=== PATIENT | female | born 1990 | race Two or more races ===

== ENCOUNTER 2022-09-05 13:42 | Inpatient (IN) | payer SELFPAY ==
[~2022-09-05] VITALS: Ht 152.4 cm; Wt 58.1 kg
--- NOTE | 2022-09-05 14:30 | NUR ---
BIB RA 837,NAUSEA/VOMITING AFTER EATING POT STICKERS FOR LUNCH. PLACED IN BED, AAOX4, NAUSEATED.
--- NOTE | 2022-09-05 14:35 | NUR ---
FIELD CANE SCALER HELPER AT BEDSIDE
--- NOTE | 2022-09-05 14:55 | NUR ---
AT BEDSIDE FOR EVAL.
[2022-09-05 14:57] LABS: BASOPHILS # (AUTO) 0.1 K/uL (0.0-0.2); BASOPHILS % (AUTO) 0.2 % (0.0-2.0); EOSINOPHILS % (AUTO) 0.2 % (0.0-6.0); HEMATOCRIT 45 % (33-45); HEMOGLOBIN 14.3 g/dL (11.5-14.8); LYMPHOCYTES # (AUTO) 2.8 K/uL (0.8-4.8); MEAN CORPUSCULAR HGB CONC 32 g/dl (31.0-36.0); MEAN CORPUSCULAR VOLUME 83 fL (82-100); MONOCYTES # (AUTO) 1.3 K/uL (0.1-1.30); MONOCYTES % (AUTO) 4.9 % (2.0-12.0); NEUTROPHILS # (AUTO) 21.5 K/uL (1.8-8.9); NEUTROPHILS % (AUTO) 83.7 % (43.0-81.0); PLATELET COUNT (AUTO) 310 K/uL (150-450); RED BLOOD CELL COUNT(AUTO) 5.46 MIL/uL (4.0-5.2); WHITE BLOOD COUNT (AUTO) 25.8 K/uL (4.3-11.0)
[2022-09-05] MEDS ORDERED: ONDANSETRON HCL/PF - ER 4 MG/2 ML VIAL IV ONE (15:00)
[2022-09-05] MEDS ORDERED: IV NS 0.9% 1,000 ML IV ONE (15:00)
[2022-09-05] MEDS ORDERED: MECLIZINE HCL 25 MG TABLET PO ONE (15:00)
[2022-09-05] MEDS ORDERED: ONDANSETRON HCL/PF 4 MG/2 ML VIAL ONE (15:02)
[2022-09-05] MEDS ORDERED: MECLIZINE HCL 25 MG TABLET ONE (15:03)
[2022-09-05 15:13] LABS: ALBUMIN 4.1 g/dL (3.4-5.0); BILIRUBIN,DIRECT 0.1 mg/dL (0.0-0.2); BILIRUBIN,TOTAL 0.4 mg/dL (0.2-1.0); CALCIUM, SERUM 9.3 mg/dL (8.5-10.1); CREATININE 1.1 mg/dL (0.6-1.3); POTASSIUM 3.6 mmol/L (3.5-5.1); TOTAL PROTEIN, SERUM 8.2 g/dL (6.4-8.2)
[2022-09-05 16:11] LABS: ACETAMINOPHEN < 10 ug/ml (10-30); ALCOHOL, BLOOD < 3 mg/dL (0-0)
--- NOTE | 2022-09-05 16:27 | NUR ---
SWAB FOR COVID19 SENT TO LAB
[2022-09-05] MEDS ORDERED: VANCOMYCIN 1 GM in IV D5W 250 ML IV ONE (16:30)
[2022-09-05] MEDS ORDERED: CEFEPIME 1 GM in IV D5W 50 ML IV ONE (16:30)
[2022-09-05 16:51] LABS: BAND % (MANUAL) 1 % (0.0-5.0); LYMPHOCYTES % (MANUAL) 9 % (16-48); MONOCYTES % (MANUAL) 5 % (0-11.0); NEUTROPHILS % (MANUAL) 85 (42-76)
[2022-09-05] MEDS ORDERED: IV NS 0.9% 1,000 ML BAG IV ONE (17:00)
[2022-09-05 18:34] LABS: BILIRUBIN,URINE NEGATIVE (NEGATIVE); COLOR,URINE YELLOW (YELLOW); LEUKOCYTE ESTERASE ,URINE NEGATIVE (NEGATIVE); NITRITE, URINE NEGATIVE (NEGATIVE); PROTEIN,URINE NEGATIVE (NEGATIVE); UGLUCOSE 1+ mg/dL (NEGATIVE); UROBILINOGEN,URINE 0.2 EU/dL (0.2)
--- NOTE | 2022-09-05 18:47 | NUR ---
PATIENT TAKEN TO CT VIA LUCY
[2022-09-05 18:53] LABS: BACTERIA,URINE Moderate /HPF (None Seen); RBC,URINE 0-2 /HPF (0-2); SQUAMOUS EPITHELIAL CELL,UR Few /HPF (None Seen); WBC,URINE 0-2 /HPF (0-3)
[2022-09-05 18:54] LABS: URINE AMORPHOUS URATE Moderate /HPF (None Seen)
[2022-09-05] MEDS ORDERED: HYDROCODONE/APAP 5/325MG TABLET PO PRN (19:30)
[2022-09-05] MEDS ORDERED: ONDANSETRON HCL/PF 4 MG/2 ML VIAL IVP PRN (19:30)
[2022-09-05] MEDS ORDERED: Z GUARD REMEDY 4 OZ OINT TP PRN (19:30)
[2022-09-05] MEDS ORDERED: ACETAMINOPHEN 325 MG TABLET PO PRN (19:30)
[2022-09-05] MEDS ORDERED: MAGNESIUM HYDROXIDE 30 ML UDC PO PRN (19:30)
--- NOTE | 2022-09-05 20:40 | NUR ---
pt is ok to give information to Nacho Lovell.
[2022-09-05] MEDS ORDERED: ACYCLOVIR IV 500 MG in IV D5W 100 ML IV ONE (22:30)
--- NOTE | 2022-09-05 22:30 | NUR ---
LUMBAR TAP DONE BY CSF SAMPLE SENT TO LAB
[2022-09-05] MEDS ORDERED: ACYCLOVIR IV 500 MG VIAL IV ONE (22:42)
[2022-09-05] MEDS ORDERED: DOSE PER PHARMACY (MD SPECIFY MEDICATION) 1 EA XX PRN (23:00)
--- NOTE | 2022-09-05 23:03 | NUR ---
REPORT GIVEN TO ANNA RN ROOM 317 FOR BERTA
[2022-09-05 23:08] LABS: CSF GLUCOSE 76 mg/dL (40-70); CSF PROTEIN 39.52 mg/dL (15-45)
[2022-09-05 23:15] VITALS: BP 137/73
--- NOTE | 2022-09-05 23:24 | NUR ---
PATIENT TRANSFERED AND ADMITTED PER [facility] PROTOC[facility]
[2022-09-05] MEDS ORDERED: METOCLOPRAMIDE HCL IV ONE (23:30)
[2022-09-05] MEDS ORDERED: DIPHENHYDRAMINE HCL IV ONE (23:30)
[2022-09-05] MEDS ORDERED: NS 0.9% IV ONE (23:30)
--- NOTE | 2022-09-05 23:45 | NUR ---
LEAD SCIENTISTMASS SPECTROMETRY SPECIALIST NOTES - RECEIVED PATIENT FROM ED AT 2314 VIA GURNEY UNDER THE CARE OF LILLY POE NP WITH DX OF SIRS. PATIENT IS A/O X4, UKRANIAN SPEAKING BUT CAN UNDERSTAND AND SPEAKS SOME BELARUSIAN. PER PATIENT, SHE IS A [place] AND [place]RIVED IN THE [place] LAST NOVEMBER. BREATHING IS EVEN AND NON-LABORED ON ROOM AIR. NOT IN APPARENT DISTRESS. DENIES PAIN, N/V, DIZZINESS AT THIS TIME. HAS LEFT ANTECUBITAL IV ACCESS #20G WITH ZOVIRAX IV RUNNING AT 100 ML/HR. NO S/S OF INFILTRATION NOTED. VITAL SIGNS TAKEN AND PHYSICAL ASSESSMENT DONE, NO SKIN ISSUES NOTED. ALL BELONGINGS ACCOUNTED FOR. ORIENTED PATIENT TO UNIT AND STAFF. PATIENT IS AMBULATORY AND INDEPENDENT WITH ADLS. SAFETY PRECAUTIONS IN PLACE: BED LOCKED AND IN LOW POSITION, SIDE RAILS UP X2, CALL LIGHT WITHIN REACH, ON AIRBORNE AND CONTACT ISOLATION. WILL CONTINUE PLAN OF CARE.
[2022-09-06] MEDS ORDERED: METOCLOPRAMIDE HCL 10 MG/2 ML VIAL ONE (00:27)
[2022-09-06] MEDS ORDERED: diphenhydrAMINE HCL 50 MG/ML VIAL ONE (00:28)
[2022-09-06] MEDS ORDERED: CEFTRIAXONE 1 G VIAL ONE ×2 (00:29→00:30)
[2022-09-06] MEDS: IV NS 0.9% 1,000 ML IV PRN ×2 (00:30→18:35)
[2022-09-06 04:00] VITALS: BP 105/59
[2022-09-06] MEDS ORDERED: VANCOMYCIN 1 GM in IV D5W 250ml IV SCH (06:00)
[2022-09-06 07:00] VITALS: BP 116/60
[2022-09-06 07:05] LABS: BASOPHILS % (AUTO) 0.2 % (0.0-2.0); EOSINOPHILS % (AUTO) 1.2 % (0.0-6.0); HEMATOCRIT 36 % (33-45); HEMOGLOBIN 11.7 g/dL (11.5-14.8); LYMPHOCYTES # (AUTO) 2.4 K/uL (0.8-4.8); LYMPHOCYTES % (AUTO) 16.1 % (20.0-44.0); MEAN CORPUSCULAR HGB CONC 32 g/dl (31.0-36.0); MEAN CORPUSCULAR VOLUME 83 fL (82-100); MONOCYTES # (AUTO) 1.2 K/uL (0.1-1.30); MONOCYTES % (AUTO) 8.3 % (2.0-12.0); NEUTROPHILS # (AUTO) 11.1 K/uL (1.8-8.9); NEUTROPHILS % (AUTO) 74.2 % (43.0-81.0); PLATELET COUNT (AUTO) 222 K/uL (150-450); RED BLOOD CELL COUNT(AUTO) 4.39 MIL/uL (4.0-5.2)
--- NOTE | 2022-09-06 07:19 | NUR ---
COAGULATING DRYING SUPERVISOR CLOSING NOTES - PATIENT SLEEPING, EASY TO AROUSE. ABLE TO VERBALIZE SOME NEEDS. NO CARDIAC OR RESPIRATORY DISTRESS THROUGHOUT THE NIGHT. NO C/O PAIN. AFEBRILE. ON TELE MONITOR READING SINUS RHYTHM AT 78 BPM. HAS LEFT ANTECUBITAL IV ACCESS #20G WITH IVPB VANCO RUNNING AT 250 ML/HR. INTACT, PATENT AND FLUSHING. KEPT ON AIRBORNE AND CONTACT ISOLATION. HAS BRP. ALL DUE MEDS GIVEN AND NEEDS ATTENDED. SAFETY PRECAUTIONS MAINTAINED. WILL ENDORSE TO NEXT SHIFT FOR BERTA.
[2022-09-06 07:24] LABS: CALCIUM, SERUM 7.8 mg/dL (8.5-10.1); CREATININE 0.8 mg/dL (0.6-1.3); MAGNESIUM 2.2 mg/dL (1.8-2.4); PHOSPHORUS 3.6 mg/dL (2.5-4.9); POTASSIUM 3.5 mmol/L (3.5-5.1)
--- NOTE | 2022-09-06 07:30 | NUR ---
PROFESSIONAL FIGHTER OPENING NOTE PATIENT RECEIVED AWAKE A/O X4. ON ROOM AIR, BREATHING EVEN AND UNLABORED, WITH NO S/S OF SOB. CLEAR LUNG SOUNDS. O2 96%. PATIENT HAS HYPOACTIVE BOWEL SOUNDS, NO ROUNDED TENDERNESS, OR PINPOINT PAIN . NO COMPLAINTS OF PAIN. NO BILATERAL EDEMA PRESENT AND CAPILLARIES REFILL < 3, WARM TO TOUCH. IV ACCESS ON THE L AC G#20, INTACT AND PATENT, RUNNING NS @75ML/HR. FALL AND SAFETY PRECAUTION ARE IN PLACE: BED AT THE LOWEST POSITION, LOCKED, SRx2,CALL LIGHT WITHIN REACH.
[2022-09-06 08:21] LABS: THYROID STIMULATING HORMONE 3.394 uIU/mL (0.358-3.74)
[2022-09-06] MEDS: PANTOPRAZOLE 40 MG TABLET.DR PO SCH (08:31)
[2022-09-06] MEDS: ACYCLOVIR IV 500 MG in IV D5W 100 ML IV SCH ×2 (09:48→13:23)
[2022-09-06 12:00] VITALS: BP 118/63
[2022-09-06] MEDS ORDERED: CEFTRIAXONE 2 G in IV D5W 100 ML IV SCH ×4 (12:00→17:30)
[2022-09-06 16:00] VITALS: BP 132/75
[2022-09-06] MEDS ORDERED: VANCOMYCIN 0.75 GM in IV D5W 250 ML IV SCH (18:00)
--- NOTE | 2022-09-06 18:34 | NUR ---
RAILWAY SIGNAL OPERATOR CLOSING NOTE PATIENT AWAKE SITTING IN BED, A/O X4. ON ROOM AIR, BREATHING EVEN AND UNLABORED, WITH NO S/S OF SOB. NO COMPLAINTS OF PAIN. CONTINENT:BRP. SCHEDULED MEDICATIONS ADMINISTERED. IV ACCESS ON LEFT HAND G#22, INTACT AND PATENT, RUNNING NS @75ML/HR. FALL AND SAFETY PRECAUTION ARE IN PLACE: BED AT THE LOWEST POSITION, LOCKED, SRx2,CALL LIGHT WITHIN REACH. Addendum: 09/06/22 at 1844 by YUN DOMINGO RN [facility] NOTE ABOVE
--- NOTE | 2022-09-06 19:30 | NUR ---
FORESTRY FIRE AID OPENING NOTES - RECEIVED PATIENT RESTING IN BED. A/O X4. BREATHING EVEN AND NON-LABORED ON ROOM AIR. NOT IN APPARENT DISTRESS. DENIES ANY PAIN, N/V AT THIS TIME. ON TELE MONITOR READING SINUS RHYTHM AT 89 BPM. HAS LEFT HAND IV ACCESS #22G WITH NS RUNNING AT 75 ML/HR. NO S/S OF INFILTRATION NOTED. SAFETY PRECAUTIONS IN PLACE: BED LOCKED AND IN LOW POSITION, SIDE RAILS UP X2, CALL LIGHT WITHIN REACH. WILL CONTINUE PLAN OF CARE.
[2022-09-06 20:00] VITALS: BP 123/80
[2022-09-07] VITALS: BP 127/65
[2022-09-07 04:00] VITALS: BP 144/78
--- NOTE | 2022-09-07 06:55 | NUR ---
SALES MERCHANDISING SPECIALIST CLOSING NOTES - PATIENT LAYING IN BED, ABLE TO VERBALIZE NEEDS. SATURATING AT 99% ON ROOM AIR. NO RESPIRATORY OR CARDIAC DISTRESS NOTED. AFEBRILE. ON TELE MONITOR READING SINUS RHYTHM AT 82 BPM. LEFT HAND IV ACCESS INTACT, PATENT AND FLUSHING. HAD BM X1. ALL DUE MEDS GIVEN AND NEEDS ATTENDED. SAFETY PRECAUTIONS MAINTAINED. WILL ENDORSE TO NEXT SHIFT FOR BERTA.
[2022-09-07 07:16] LABS: BASOPHILS % (AUTO) 0.3 % (0.0-2.0); EOSINOPHILS % (AUTO) 2.3 % (0.0-6.0); HEMATOCRIT 37 % (33-45); HEMOGLOBIN 12.2 g/dL (11.5-14.8); LYMPHOCYTES # (AUTO) 2.6 K/uL (0.8-4.8); LYMPHOCYTES % (AUTO) 25.5 % (20.0-44.0); MEAN CORPUSCULAR HGB CONC 33 g/dl (31.0-36.0); MEAN CORPUSCULAR VOLUME 82 fL (82-100); MONOCYTES # (AUTO) 0.9 K/uL (0.1-1.30); NEUTROPHILS # (AUTO) 6.5 K/uL (1.8-8.9); NEUTROPHILS % (AUTO) 62.9 % (43.0-81.0); PLATELET COUNT (AUTO) 221 K/uL (150-450); RED BLOOD CELL COUNT(AUTO) 4.54 MIL/uL (4.0-5.2); WHITE BLOOD COUNT (AUTO) 10.3 K/uL (4.3-11.0)
[2022-09-07 07:29] LABS: CALCIUM, SERUM 8.6 mg/dL (8.5-10.1); MAGNESIUM 2.3 mg/dL (1.8-2.4); PHOSPHORUS 3.9 mg/dL (2.5-4.9); POTASSIUM 3.9 mmol/L (3.5-5.1)
--- NOTE | 2022-09-07 07:33 | NUR ---
WHIPPER OPENING NOTE (DAY SHIFT) RECEIVED PATIENT RESTING IN BED. A/O X 4. BREATHING EVEN AND NON-LABORED ON ROOM AIR. NOT IN ANY APPARENT DISTRESS. DENIES ANY PAIN, N/V AT THIS TIME. ON TELE MONITOR READING SINUS RHYTHM IN THE 90s BPM. HAS LEFT HAND IV ACCESS #22G WITH NS INFUSING AT 75 ML/HR. NO S/S OF INFILTRATION NOTED. SAFETY PRECAUTIONS IN PLACE: BED LOCKED AND IN LOW POSITION, SIDE RAILS UP X 2, CALL LIGHT WITHIN REACH. ISOLATION DROPLET PRECAUTIONS MAINTAINED IN NEGATIVE AIR PRESSURE ROOM. WILL CONTINUE TO CARE FOR AND MONITOR PATIENT PER HOSPITALIST'S PLAN OF CARE.
[2022-09-07] MEDS: PANTOPRAZOLE 40 MG TABLET.DR PO SCH (07:58)
--- NOTE | 2022-09-07 17:09 | NUR ---
GRINDER MILL OPERATORSEED LABORATORY ASSISTANT PATIENT TO HOME NOTE Patient tolerated the removal of her PIV catheter # 22 gauge fully intact from her left hand without any complications of IV therapy. Patient and patient's sister demonstrated understanding of patient's discharge home care instructions using the teach back method in their own words. Patient departed the [facility] on foot with steady gait accompanied by her sister to a private car bound for their home at 17:05 hours.
[2022-09-09 08:07] LABS: HEPATITIS Be AB Negative (Negative)
[2022-09-09 17:07] LABS: *CRYPTOCOCCUS AG, CSF Negative (Negative)
== END 2022-09-07 17:30 | disposition home or self-care (01) | DRG 864 ==
LOC: ER 13:49 → TELE 22:59
PROVIDERS: ADMIT Nurse Practitioner Family; ATTEND Nurse Practitioner Family
PROC: 009U3ZX Drainage of Spinal Canal, Percutaneous Approach, Diagnostic (ICD-10-PCS; principal; 2022-09-06)
DX: R65.10 Systemic inflammatory response syndrome (SIRS) of non-infectious origin without acute organ dysfunction (principal); E87.20 Acidosis, unspecified; Z20.822 Contact with and (suspected) exposure to COVID-19; R73.03 Prediabetes; R79.89 Other specified abnormal findings of blood chemistry; F17.200 Nicotine dependence, unspecified, uncomplicated; Z78.9 Other specified health status
CPT/HCPCS: 36415; 70450-TC; 71045-TC; 80048-TC; 80061-TC; 80076-TC; 80202-TC; 81001; 83605-TC; 83690-TC; 83735-TC; 84100-TC; 84443-TC; 84702-TC; 84703-TC; 85025-TC; 86592; 86704; 86705; 86706; 86707; 86803; 87040-TC; 87081-TC; 87086-TC; 87102-TC; 87116; 87206; 87340; 87350; 87806; 87899; 89051-TC; A4217; A4223; C9803; G0378; G0480; J0133; J0692; J0696; J1200; J2405; J2765; J3370; J7030; J7040; J7060; J8597

== ENCOUNTER 2023-12-26 12:30 | Emergency (ER) | payer SELFPAY ==
[~2023-12-26] VITALS: Ht 154.9 cm; Wt 47.6 kg
[2023-12-26 12:36] VITALS: TEMP 98.3
[2023-12-26] MEDS ORDERED: CLIN300C12 PO (15:20)
[2023-12-26] MEDS ORDERED: CLINDAMYCIN HCL 150 MG CAPSULE ONE (15:23)
[2023-12-26] MEDS: CLINDAMYCIN HCL 150 MG CAPSULE PO ONE (15:26)
[2023-12-26 15:46] VITALS: BP 113/71; O2SAT 98
== END 2023-12-26 15:38 | disposition home or self-care (01) ==
LOC: ER 12:30
DX: L03.211 Cellulitis of face (principal)